=== PATIENT | female | born 1955 | race Hispanic/Latino ===

== ENCOUNTER 2017-11-05 22:37 | Emergency (ER) | payer MEDICARE ==
[~2017-11-05] VITALS: Ht 157.5 cm; Wt 92.5 kg
--- OUTSIDE RECORDS SUMMARY | 2017-11-05 22:39 | XMS REPORT ---
Author [facility] Address Unknown Phone Unavailable Care Team Providers Care Stapler Coil Unit Name Role Phone Unavailable Unavailable Problems This patient has no known problems. Allergies, Adverse Reactions, Alerts This patient has no known allergies or adverse reactions. Medications This patient has no known medications. Encounters Start Date/Time End Date/Time Encounter Type Admission Type Attending [facility] Facility Care Department Encounter ID 2017-12-27 00:00:00 2017-12-27 00:00:00 Outpatient [facility] [id number] 2017-12-20 00:00:00 2017-12-20 00:00:00 Outpatient [facility] [id number] 2017-11-17 00:00:00 2017-11-17 00:00:00 Outpatient [facility] [id number] 2017-09-21 10:02:13 2017-09-21 10:02:13 Outpatient [facility] [id number] 2017-09-16 00:00:00 2017-09-16 00:00:00 Outpatient [facility] [id number] 2017-09-09 00:00:00 2017-09-09 00:00:00 Outpatient [facility] [id number] 2017-09-01 10:21:28 2017-09-01 10:21:28 Outpatient [facility] [id number] 2017-08-24 09:24:54 2017-08-24 09:24:54 Outpatient [facility] [id number] 2017-08-24 08:42:30 2017-08-24 08:42:30 Outpatient [facility] [id number] 2017-07-08 00:00:00 2017-07-08 00:00:00 Outpatient [facility] [id number]
[2017-11-06] MEDS ORDERED: CLINDAMYCIN PHOS 600 MG/ 4 ML VIAL IM ONE (00:30)
[2017-11-06 00:57] VITALS: BP 101/44
== END 2017-11-06 00:59 | disposition home or self-care (01) ==
LOC: FSED 22:37
DX: H57.12 Ocular pain, left eye (principal); H00.015 Hordeolum externum left lower eyelid; I10 Essential (primary) hypertension; E11.9 Type 2 diabetes mellitus without complications; H00.035 Abscess of left lower eyelid
CPT/HCPCS: 87071; 87205; 99282

== ENCOUNTER 2017-12-06 16:00 | Emergency (ER) | payer OTHER ==
[~2017-12-06] VITALS: Ht 157.5 cm; Wt 92.5 kg
--- OUTSIDE RECORDS SUMMARY | 2017-12-06 16:03 | XMS REPORT | Continuity of Care Document ---
Author Author [facility] Organization [facility] Address [address] [place] [address] Phone Unavailable Care Team Providers Care Molecular Biologist Name Role Phone LUCAS DAWSON MD PCP Advance Directives No advance directive information available. Problems No problem information available. Medications No medication information available. Social History Smoking Status Start Date Stop Date Never Smoker Hospital Discharge Instructions No hospital discharge instruction information available. Plan of Care Discharge Date 11/06/17 12:59am Disposition HOME, SELF-CARE Condition at Discharge Improved Instructions/Education Provided Stye (Hordeolum) Forms Provided Work/School Excuse Prescriptions See Medication Section Additional Instructions/Education Continue the antibiotic eye ointment 3-4x/ day, to the left lower eyelid Complete the oral antibiotics prescribed for you earlier today Apply heat to the left lower eyelid 3-4x/day, for 15 minutes, to help the area drain. DO not pick or squeeze the area on the left lower eyelid. Follow-up with Machine Paint Mixer (investigation specialist) tomorrow at: [facility] - [phone] or [phone] [facility] [address] Functional Status No functional status information available. Allergies, Adverse Reactions, Alerts No known allergies. Immunizations No immunization information available. Vital Signs Acute Vital Signs Vital Response Date/Time Temperature (Fahrenheit) 96.6 degrees F (97.6 - 99.5) 11/06/2017 12:57am Pulse Pulse Rate (adult) 74 bpm (60 - 90) 11/06/2017 12:57am Respiratory Rate 20 bpm (12 - 24) 11/06/2017 12:57am Blood Pressure 101/44 mm Hg 11/06/2017 12:57am Height 5 ft 2 in 11/05/2017 10:44pm Weight 204 lb 11/05/2017 10:44pm Body Mass Index 37.3 kg/m^2 11/05/2017 10:44pm Results No relevant diagnostic test, laboratory data and/or discharge summary information available. Procedures No procedure information available. Encounters Encounter Location Arrival/Admit Date Discharge/Depart Date Attending Provider Departed Emergency Room [facility] 11/05/17 10:37pm 11/06 12:59am MELISA BRIOT MD
[2017-12-06 17:57] VITALS: BP 146/82
== END 2017-12-06 17:45 | disposition home or self-care (01) ==
LOC: FSED 16:00
DX: R05 Cough (principal); R51 Headache; J00 Acute nasopharyngitis [common cold]; I10 Essential (primary) hypertension; E78.5 Hyperlipidemia, unspecified
CPT/HCPCS: 87400; 99283

== ENCOUNTER 2018-01-10 22:53 | Emergency (ER) | payer OTHER ==
[~2018-01-10] VITALS: Ht 160 cm; Wt 95.3 kg
--- OUTSIDE RECORDS SUMMARY | 2018-01-10 22:55 | XMS REPORT | Clinical Summary ---
Author Author [facility] Address Unknown Phone Unavailable Care Team Providers Care Supervisor Heat Treating Name Role Phone PCP Unavailable Allergies No Known Allergies Current Medications Prescription Sig. Disp. Refills Start End Date Status Date metFORMIN (GLUCOPHAGE) Take 500 mg by mouth 2 Active 500 MG tablet (two) times daily with breakfast and dinner. lisinopril Take 10 mg by mouth Active (PRINIVIL,ZESTRIL) 10 MG daily. tablet insulin glargine (LANTUS) Inject subcutaneously Active 100 unit/mL injection nightly Use as directed . atorvastatin (LIPITOR) 80 Take 80 mg by mouth Active MG tablet daily. insulin lispro (HUMALOG) Inject subcutaneously 3 Active 100 unit/mL injection (three) times daily before meals. aspirin 81 MG EC tablet Take 81 mg by mouth Active daily. Active Problems Not on file Encounters Date Type Specialty Care Team Description 01/10/2018 Emergency Emergency Medicine after 01/09/2017 Social History Tobacco Use Types Packs/Day Years Used Date Never Smoker Smokeless Tobacco: Never Used Alcohol Use Drinks/Week oz/Week Comments No Sex Assigned at Date Recorded Not on file Last Filed Vital Signs Vital Sign Reading Time Taken Blood Pressure 138/89 01/10/2018 7:10 PM CDT Pulse 84 01/10/2018 7:10 PM CDT Temperature 37.2 C (98.9 F) 01/10/2018 7:10 PM CDT Respiratory Rate 20 01/10/2018 7:10 PM CDT Oxygen Saturation 97% 01/10/2018 7:10 PM CDT Inhaled Oxygen - - Concentration Weight 93 kg (205 lb 1 oz) 01/10/2018 7:10 PM CDT Height - - Body Mass Index 37.51 01/10/2018 7:10 PM CDT Plan of Treatment Not on file Results Not on fileafter 01/09/2017
--- OUTSIDE RECORDS SUMMARY | 2018-01-10 22:55 | XMS REPORT | Continuity of Care Document ---
Author Author [facility] Organization [facility] Address [address] [place] [address] Phone Unavailable Care Team Providers Care Call Center Coordinator Name Role Phone LUCAS DAWSON MD PCP Insurance Providers Guarantor Marli Novoa Address [address] [place] [address] Email [email or web address] Payer Miscellaneous H[employer] Policy Number [id number] Subscriber's Name Marli Novoa Relationship 18 Self / Same As Patient Advance Directives Directive Response Recorded Date/Time Does the patient have an advance directive? No 11/06/17 5:23am Do you have a Directive to Physician? No 12/06/17 4:48pm Do you have a Medical Power of Endoscope Technician? No 12/06/17 4:48pm Do you have an out of hospital Do Not Resuscitate Order? No 12/06/17 4:48pm Do you have any special needs we should be aware of? No 12/06/17 4:48pm Do you have a support person here with you today? Yes 12/06/17 4:48pm Did patient receive Notice of Privacy Practices? Yes 12/06/17 4:48pm Did patient receive patient rights and responsibilities? Yes 12/06/17 4:48pm Problems No problem information available. Medications No medication information available. Social History Smoking Status Start Date Stop Date Never Smoker Hospital Discharge Instructions No hospital discharge instruction information available. Plan of Care Discharge Date 12/06/17 5:45pm Disposition HOME, SELF-CARE Condition at Discharge Stable Instructions/Education Provided Upper Respiratory Infection - Adult Forms Provided Work/School Excuse Prescriptions See Medication Section Additional Instructions/Education Recommendations for Upper Respiratory Symptoms with Nasal Drainage: -Zyrtec (Cetirizine)(Generic store brand is fine) - 1 tab daily, to help with nasal drainage. - - Mucinex DM - which is 2 tabs twice daily; to help decrease mucous. -Nasacort or Flonase - 2 sprays each nostril twice daily x 3 days, then decrease to 2 sprays once daily, to help with inflammation in the nose and to help open it up. oAcetaminophen 500 mg - 2 tabs every 4 hours for pain and fever. Functional Status No functional status information available. Allergies, Adverse Reactions, Alerts No known allergies. Immunizations No immunization information available. Vital Signs Acute Vital Signs Vital Response Date/Time Temperature (Fahrenheit) 97.8 degrees F (97.6 - 99.5) 12/06/2017 5:57pm Pulse Pulse Rate (adult) 78 bpm (60 - 90) 12/06/2017 5:57pm Respiratory Rate 16 bpm (12 - 24) 12/06/2017 5:57pm Blood Pressure 146/82 mm Hg 12/06/2017 5:57pm Height 5 ft 2 in 12/06/2017 4:08pm Weight 204 lb 12/06/2017 4:08pm Body Mass Index 37.3 kg/m^2 12/06/2017 4:08pm Results No relevant diagnostic test, laboratory data and/or discharge summary information available. Procedures Procedure Status Date Provider(s) DRAINAGE OF EYELID ABSCESS Completed 11/05/17 MELISA BRITO MD Encounters Encounter Location Arrival/Admit Date Discharge/Depart Date Attending Provider Departed Emergency Room [facility] 12/06/17 4:00pm 5:45pm MELISA BRITO MD Departed Emergency Room [facility] 11/05/17 10:37pm 11/06 12:59am MELISA BRITO MD
== END 2018-01-10 23:32 | disposition home or self-care (01) ==
LOC: FSED 22:53
DX: H10.021 Other mucopurulent conjunctivitis, right eye (principal); H05.011 Cellulitis of right orbit
CPT/HCPCS: 99282

== ENCOUNTER 2018-02-01 13:05 | Emergency (ER) | payer OTHER ==
[~2018-02-01] VITALS: Ht 160 cm; Wt 92.1 kg
[2018-02-01] MEDS ORDERED: TETANUS/DIPHTHERIA TOX ADULT 0.5 ML SYR IM ONE (13:45)
[2018-02-01] MEDS ORDERED: BACITRACIN ZINC 0.9GM TP ONE (14:00)
[2018-02-01 14:36] VITALS: BP 155/62
== END 2018-02-01 14:10 | disposition home or self-care (01) ==
LOC: FSED 13:05
DX: S90.121A Contusion of right lesser toe(s) without damage to nail, initial encounter (principal); S90.414A Abrasion, right lesser toe(s), initial encounter; W22.8XXA Striking against or struck by other objects, initial encounter; S92.511A Displaced fracture of proximal phalanx of right lesser toe(s), initial encounter for closed fracture; Z23 Encounter for immunization
CPT/HCPCS: 90471; 90714; 99283

== ENCOUNTER 2018-03-11 22:31 | Emergency (ER) | payer OTHER ==
[~2018-03-11] VITALS: Ht 160 cm; Wt 93.0 kg
[2018-03-12] MEDS ORDERED: ATORVASTATIN CA20 MG PO (00:09)
[2018-03-12 00:50] VITALS: BP 145/86
== END 2018-03-12 00:52 | disposition home or self-care (01) ==
LOC: FSED 22:31
DX: S91.114A Laceration without foreign body of right lesser toe(s) without damage to nail, initial encounter (principal); E11.9 Type 2 diabetes mellitus without complications; E78.5 Hyperlipidemia, unspecified; W22.8XXA Striking against or struck by other objects, initial encounter; Y92.019 Unspecified place in single-family (private) house as the place of occurrence of the external cause
CPT/HCPCS: 99284

== ENCOUNTER 2022-08-27 19:29 | Emergency (ER) | payer MEDICARE ==
[~2022-08-27] VITALS: Ht 160 cm; Wt 86.2 kg
[~2022-08-27 19:29] MED LIST: ATORVASTATIN CA20 MG PO
[2022-08-27] MEDS ORDERED: SODIUM CHLORIDE 0.9% 500ML 500 ML IV STA (20:43)
[2022-08-27] MEDS ORDERED: IOPAMIDOL 370 MG/ML 100 ML INFUS..BTL INJ ONE (20:59)
[2022-08-27] MEDS ORDERED: ULTRAM 50MG50 MG PO (22:11)
[2022-08-27] MEDS ORDERED: SODIUM CHLORIDE 0.9% 500ML 500 ML ONE (22:13)
[2022-08-27] MEDS ORDERED: Morphine 2mg Syringe 2 MG/ML SYR IV ONE (22:15)
[2022-08-27] MEDS ORDERED: TRAMADOL HCL 50 MG TAB PO STA (22:18)
[2022-08-27 22:30] VITALS: BP 129/69
== END 2022-08-27 22:30 | disposition home or self-care (01) ==
LOC: FSED 19:38
DX: M54.9 Dorsalgia, unspecified (principal); R07.89 Other chest pain; R91.8 Other nonspecific abnormal finding of lung field; W18.39XD Other fall on same level, subsequent encounter; I10 Essential (primary) hypertension; E11.65 Type 2 diabetes mellitus with hyperglycemia; E78.5 Hyperlipidemia, unspecified; Z86.73 Personal history of transient ischemic attack (TIA), and cerebral infarction without residual deficits
CPT/HCPCS: 71260; 74177; 80053; 85025; 99284; J7040; Q9967; J2270